=== PATIENT | male | born 1990 | race Caucasian/White ===

== ENCOUNTER 2025-10-07 08:45 | Outpatient (CLI) | payer MEDICAID, SELFPAY ==
--- OUTSIDE RECORDS SUMMARY | 2025-08-18 07:10 | XMS_ITS | Encounter Summary ---
Author Organization Healthcare Address [address] [place] [address] Care Team Providers Care Sink Cutter Name Role Phone Pcp, No Primary Care Provider Unavailabl e Encounter Details Date Type Department Care Team (Late st Contact Info) Description 08/18/2025 8:10 AM EDT Ancillary Procedure [facility] [address] [place] [address] Social History Tobacco Use Types Packs/Day Years Used Date Smoking Tobacco: Some Days Cigarettes Humiliation, Afraid, Rape, and Kick questionnair e Answer Date Recorded Within the last year, have y ou been afraid of your partner or ex-partner? No 02/25/2024 Within the last year, have y ou been humiliated or emotionally abused in other ways by your partner or ex-partner? No Within the last year, have y ou been kicked, hit, slapped, or otherwise physically hurt by your partner or ex-partner? No 02/25/2024 Within the last year, have y ou been raped or forced to have any kind of sexual activity by your partner or ex-partner? No 02/25/2024 Hunger Vital Sign Answer Date Recorded Within the past 12 months, y ou worried that your food would run out before you got the money to buy more. Never true 02/25/20 24 Within the past 12 months, t he food you bought just didn't last and you didn't have money to get more. Never true 02/25/2024 PRAPARE - Transportation Answer Date Re corded In the past 12 months, has l ack of transportation kept you from medical appointments or from getting medications? No 04/2024 In the past 12 months, has l ack of transportation kept you from meetings, work, or from getting things needed for daily living? No 02/25/2024 Housing Stability Vital Sign Answer Junior e Recorded In the last 12 months, was t here a time when you were not able to pay the mortgage or rent on time? No 02/25/2024 In the last 12 months, how many places have you lived? 1 02/25/2024 In the last 12 months, was t here a time when you did not have a steady place to sleep or slept in a halfway (including now)? No 02/25/2024 Utilities Answer Date Recorded In the past 12 months has th e electric, gas, oil, or water company threatened to shut off services in your home? No 02/25/2024 Sex and Gender Information Value Date Recorded Sex Assigned at Not on file Legal Sex Male 10:33 AM EDT Gender Identity Not on file Sexual Orientation Not on file documented as of this encounter Plan of Treatment Upcoming Encounters Date Type Department Care Team (Late st Contact Info) Description 10/26/2025 1:00 PM EST Procedure Visit [facility] [address] [place] [address] Lianet Murphy MD [address] [address] documented as of this encounter Procedures Procedure Name Priority Date/Time Associated Diagnosis Comments OCT, RETINA - OU - BOTH EYES Routine 08/18/2025 3:09 PM EDT Vitreous hemorrhage of both eyes ([facility]) documented in this encounter Results * OCT, Retina - OU - Both Eyes (08/18/2025 3:09 PM EDT) Anatomical Region Laterality Modality Head Optical Coherenc e Tomography Narrative 08/18/2025 3:09 PM EDT Right Eye Quality was good. Scan locations included subfoveal. Progression has improved. Left Eye Quality was good. Scan locations included subfoveal. Progression has been stable. Notes Right eye CME improved Left eye CME slightly improved, still present us Lianet Murphy MD OPHTH TOMOGRAPHY Final Result documented in this encounter Visit Diagnoses Not on filedocumented in this encounter Additional Health Concerns Assessment Noted Time A fall risk assessment has been complete d for the patient 07/21/2025 1:55 PM EDT A Body Mass Index follow-up plan has been documented for the patient 08/18/2025 3:37 PM EDT documented as of this encounter Care Teams Sink Cutter Relationship Specialty Start Date End Date Pcp, No [address] [place] [address] PCP - General Family Medicine 01/25/24 documented as of this encounter
--- OUTSIDE RECORDS SUMMARY | 2025-08-18 13:00 | XMS_ITS | Encounter Summary ---
Author Organization [facility] Address 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 Procedures AL BEVACIZUMAB INJECTION Lianet Murphy MD [address] [place] [phone] Phone: tel: fax: Referral ID Status Reason Start Date Expiration Date V isits Requested Visits Authorized [id number] Authorized 08/18/2025 02/17/2027 1 1 * Clinic-Administered Medication (Routine) - Authorized Specialty Diagnoses / Procedures Referred By Leonel gallo Referred To Contact Diagnoses 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 Procedures AL BEVACIZUMAB INJECTION Lianet Murphy MD [address] [address] Phone: tel: fax: Referral ID Status Reason Start Date Expiration Date V isits Requested Visits Authorized [id number] Authorized 08/18/2025 02/17/2027 1 1 Reason for Visit * Reason Comments Diabetic Eye Exam Encounter Details Date Type Department Care Team (Latest Contact Info) Description 08/18/2025 2:00 PM EDT Office Visit [facility] [address] [place] [address] Lianet Murphy MD [address] [place] [address] Vitreous hemorrhage of both eyes (CMS/HCC) (Primary Dx); 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 No 02/25/2024 Utilities Answer Date Recorded In the past 12 months has e electric, gas, oil, or water company threatened to shut off services in your home? No 02/25/2024 Sex and Gender Information Value Date Recorded Sex Assigned at Not on file Legal Sex Male 10:33 AM EDT Gender Identity Not on file Sexual Orientation Not on file documented as of this encounter Miscellaneous Notes * Progress Notes - Sukhwinder Weston MD - 08/18/2025 2:00 PM EDT RETINA CLINIC NOTE 08/18/25 CHIEF COMPLAINT Patient presents for Diabetic Eye Exam HISTORY OF PRESENT ILLNESS: Oziel Barney is a 35 y.o. male who presents to the clinic today for: HPI Oziel Barney is a 35 y.o. 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 Pt states that his vision is stable but he still has a floaters in the right eye (OD). He denies any pain or flashes.no eye drops are being used. A1c 8.8 Blood sugar 228 Last edited by Que Mead on 08/18/2025 2:13 PM. Referring physician: No referring provider defined for this encounter. HISTORICAL INFORMATION: Selected notes from the medical record: CURRENT MEDICATIONS: No current outpatient medications on file. (Ophthalmic Drugs) No current facility-administered medications for this visit. (Ophthalmic Drugs) Current Outpatient Medications (Other) Medication Sig Alcohol Sheets (Alcoh-Wipe) sheet Use as directed. Blood Glucose Monitoring Suppl device Test three times daily glucose blood test strip Test three times daily insulin glargine-yfgn 100 UNIT/ML injection vial Inject 0.22 mL (22 Units) under the skin 1 (one) time each day. insulin lispro 100 UNIT/ML injection pen Inject 8 Units under the skin 3 (three) times a day with meals. Lancets misc Test three times daily pen needle, diabetic 31G X 5 MM misc Use as directed with insulin pen. pen needle, diabetic 31G X 5 MM misc Use as directed with insulin pen. carvedilol (Coreg) 6.25 MG tablet Take 1 tablet (6.25 mg) by mouth 2 (two) times a day. (Patient not taking: Reported on 08/18/2025) losartan (Cozaar) 25 MG tablet Take 1 tablet (25 mg) by mouth 1 (one) time each day. (Patient not taking: Reported on 08/18/2025) No current facility-administered medications for this visit. (Other) PAST MEDICAL HISTORY Past Medical History[1] SOCIAL HISTORY Social History[2] GENERAL EXAM: General Exam: Neuro: Alert and Oriented x 3, normal mood and affect OPHTHALMIC EXAM: Base Eye Exam Visual Acuity (Snellen - Linear) Right Left Dist sc CF at 3' 20/60 Dist ph sc 20/40 -1 Tonometry (Tonopen, 2:19 PM) Right Left Pressure 18 19 Pupils Shape React APD Right Round fixed None Left Round fixed None Neuro/Psych Oriented x3: Yes Mood/Affect: Normal Dilation Both eyes: 1% Tropicamide, 2.5% Phenylephrine @ 2:20 PM Slit Lamp and Fundus Exam External Exam Right Left External Normal Normal Slit Lamp Exam Right Left Lids/Lashes Normal for age Normal for age Conjunctiva/Sclera Normal Normal Cornea Clear and compact Clear and compact Anterior Chamber Deep and quiet Deep and quiet Iris Normal pupil size and shape Normal pupil size and shape Lens 1+ Nuclear sclerosis 1+ Nuclear sclerosis Anterior Vitreous Vitreous hemorrhage Clear Fundus Exam Right Left Posterior Vitreous Hemorrhage Hemorrhage Disc Neovascularization Neovascularization C/D Ratio 0.3 0.3 Macula scattered DBH, CWS, exudate scattered DBH, CWS, exudate, (+) DME Vessels PDR PDR Periphery NVE in some areas NVE IMAGING AND PROCEDURES OCT, Retina - OU - Both Eyes Right Eye Quality was good. Scan locations included subfoveal. Progression has improved. Left Eye Quality was good. Scan locations included subfoveal. Progression has been stable. Notes Right eye CME improved Left eye CME slightly improved, still present Intravitreal Injection, Pharmacologic Agent - OU - Both Eyes Time Out 08/18/2025. 3:30 PM. Confirmed correct patient, procedure, site, and patient consented. Anesthesia Right Eye Topical anesthesia was used. Anesthetic medications included Proparacaine 0.5%. Left Eye Topical anesthesia was used. Anesthetic medications included Proparacaine 0.5%. Procedure Right Eye Preparation included 5% betadine to ocular surface. A 30 gauge needle was used. Injection: 1.25 mg bevacizumab 2.25 MG/0.09ML Route: Intravitreal, Site: Right Eye NDC: 21423-430-64, Lot: [id number], Expiration date: 10/23/2025 Left Eye Preparation included 5% betadine to ocular surface. A 30 gauge needle was used. Injection: 1.25 mg bevacizumab 2.25 MG/0.09ML Route: Intravitreal, Site: Left Eye NDC: 26216-028-34, Lot: [id number], Expiration date: 11/21/2025 Post-op Right Eye Post injection exam found visual acuity of at least counting fingers, no retinal detachment, perfused optic nerve. The patient tolerated the procedure well. There were no complications. The patient received written and verbal post procedure care education. Post injection medications were not given. Left Eye Post injection exam found visual acuity of at least counting fingers, no retinal detachment, perfused optic nerve. The patient tolerated the procedure well. There were no complications. The patient received written and verbal post procedure care education. Post injection medications were not given. VISIT DIAGNOSES 1. Vitreous hemorrhage of both eyes (CMS/[facility]) OCT, Retina - OU - Both Eyes 2. 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 - neovascularization elsewhere (NVE) with pre retinal Hg both eyes (OU) - vitreous (vit) heme both eyes (OU) - OCT both eyes (OU) shows significant DME. - Discussed the r/b/a of intravitreal injections and the need for panretinal photocoagulation (PRP)both eyes (OU). - improved at 4 weeks status post (s/p) KATHY OU - Plan: KATHY OU and RTC 4-6w - will need panretinal photocoagulation (PRP) both eyes (OU) in future Electronically Signed by: Sukhwinder Weston MD - 08/18/2025 - 2:54 PM Explained the diagnoses, plan, and follow up with the patient and they expressed understanding. Patient expressed understanding of the importance of proper follow up care. Follow up in about 4 weeks (around 09/15/2025). Tobacco cessation initiative Tobacco Use: High Risk (08/18/2025) Patient History Smoking Tobacco Use: Some Days Smokeless Tobacco Use: Unknown Passive Exposure: Not on file The patient has been counseled on tobacco cessation: Yes Electronically signed by: Lianet Murphy MD 08/18/2025 3:31 PM Lianet Murphy MD [employer] Supervisor [facility]reoRetinal Surgery [facility] [1] History reviewed. No pertinent past medical history. [2] Social History Tobacco Use Smoking status: Some Days Current packs/day: 0.25 Types: Cigarettes Vaping Use Vaping status: Never Used Cosigned by Lianet Murphy MD at 08/18/2025 3:33 PM EDT Associated attestation - Lianet Murphy MD - 08/18/2025 3:33 PM EDT I saw and evaluated the patient with the resident/fellow. I discussed the case with the resident/fellow and agree with the findings and plan as documented. 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 3:30 PM. Confirmed correct patient, procedure, site, and patient consented. Anesthesia Right Eye Topical anesthesia was used. Anesthetic medications included Proparacaine 0.5%. Left Eye Topical anesthesia was used. Anesthetic medications included Proparacaine 0.5%. Procedure Right Eye Preparation included 5% betadine to ocular surface. A 30 gauge needle was used. Injection: 1.25 mg bevacizumab 2.25 MG/0.09ML Route: Intravitreal, Site: Right Eye NDC: 49305-345-82, Lot: [id number], Expiration date: 10/23/2025 Left Eye Preparation included 5% betadine to ocular surface. A 30 gauge needle was used. Injection: 1.25 mg bevacizumab 2.25 MG/0.09ML Route: Intravitreal, Site: Left Eye NDC: 65557-522-48, Lot: [id number], Expiration date: 11/21/2025 Post-op Right Eye Post injection exam found visual acuity of at least counting fingers, no retinal detachment, perfused optic nerve. The patient tolerated the procedure well. There were no complications. The patient received written and verbal post procedure care education. Post injection medications were not given. Left Eye Post injection exam found visual acuity of at least counting fingers, no retinal detachment, perfused optic nerve. The patient tolerated the procedure well. There were no complications. The patient received written and verbal post procedure care education. Post injection medications were not given. Lianet Murphy MD OPHTH CLINIC PROCEDURES Final Result * OCT, Retina - OU - Both Eyes (08/18/2025 3:09 PM EDT) Anatomical Region Laterality Modality Head Optical Coherenc e Tomography Narrative 08/18/2025 3:09 PM EDT Right Eye Quality was good. Scan locations included subfoveal. Progression has improved. Left Eye Quality was good. Scan locations included subfoveal. Progression has been stable. 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 documented in this encounter Administered Medications Inactive Administered Medications - up to 3 most recent administrations Medication Order MAR Action Action Date Dose Rate Site bevacizumab injection 1.25 mg 1.25 mg, Intravitreal, Once PRN Procedure, 1 dose, Starting on Sat08/18/25 at 1531, Until Sat08/18/25 at 1531, RoutineIndications: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 Given 08/18/2025 3:31 PM EDT 1.25 mg Right Eye bevacizumab injection 1.25 mg 1.25 mg, Intravitreal, Once PRN Procedure, 1 dose, Starting on Sat08/18/25 at 1531, Until Sat08/18/25 at 1531, RoutineIndications: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
--- OUTSIDE RECORDS SUMMARY | 2025-09-22 08:00 | XMS_ITS | Encounter Summary ---
Author Organization [facility] Address [address] 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 Procedures MD BEVACIZUMAB INJECTION Lianet Murphy MD [address] [place] [phone] Phone: tel: fax: Referral ID Status Reason Start Date Expiration Date V isits Requested Visits Authorized [id number] Authorized 09/22/2025 03/24/2027 1 1 * Clinic-Administered Medication (Routine) - Authorized Specialty Diagnoses / Procedures Referred By Leonel gallo Referred To Contact Diagnoses 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 Procedures MD BEVACIZUMAB INJECTION Lianet Murphy MD [address] [address] Phone: tel: fax: Referral ID Status Reason Start Date Expiration Date V isits Requested Visits Authorized [id number] Authorized 09/22/2025 03/24/2027 1 1 Reason for Visit * Reason Comments Diabetic Eye Exam Encounter Details Date Type Department Care Team (Latest Contact Info) Description 09/22/2025 8:00 AM EST Procedure Visit [facility] [address] [place] [address] Lianet Murphy MD [address] [place] [address] Vitreous hemorrhage of both eyes [...] place to sleep or slept in a snf (including now)? No 02/25/2024 Utilities Answer Date [...] encounter Miscellaneous Notes * Progress Notes - Svetlana Nolan MD - 09/22/2025 8:00 AM EST RETINA CLINIC NOTE 09/22/25 CHIEF COMPLAINT Patient presents for Diabetic Eye Exam HISTORY OF PRESENT ILLNESS: Oziel Barney is a 35 y.o. male who presents to the clinic today for: HPI Oziel Barney is a 35 y.o. 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 Last KATHY both eyes (OU) 08/18/2025. Patient states that vision remains blurry in the right eye. He states that he can see better in thedistance with the right eye, but not as well near in the right eye. Left eye remains stable. Patient is not seeing any floaters currently. Denies flashes of light, pain, or irritation. Last A1C around 8 taken around September 2024. LBS 173 taken this AM. Last edited by Argentina Abdi on 09/22/2025 8:04 AM. Referring physician: No referring provider defined for [...] a day. (Patient not taking: Reported on 09/22/2025) losartan (Cozaar) 25 MG tablet Take 1 tablet (25 mg) by mouth 1 (one) time each day. (Patient not taking: Reported on 09/22/2025) No current facility-administered medications for this visit. (Other) PAST MEDICAL HISTORY Past Medical History[1] SOCIAL HISTORY Social History[2] GENERAL EXAM: General Exam: Neuro: Alert and Oriented x 3, normal mood and affect OPHTHALMIC EXAM: Base Eye Exam Visual Acuity (Snellen - Linear) Right Left Dist sc 20/400 20/50 +2 Dist ph sc 20/150 NI Tonometry (Tonopen, 8:11 AM) Right Left Pressure 15 16 Pupils Shape APD Right Round None Left Round None Left eye (OS)>right eye (OD) Neuro/Psych Oriented x3: Yes Mood/Affect: Normal Dilation Both eyes: 1% Tropicamide, 2.5% Phenylephrine @ 8:10 AM Slit Lamp and Fundus Exam External Exam [...] Scan locations included subfoveal. Progression has improved. Notes Right eye (OD): VH, DME slightly improved Left eye (OS) : DME slightly improved, still significant Intravitreal Injection, Pharmacologic Agent - OU - Both Eyes Time Out 09/22/2025. 9:04 AM. Confirmed correct patient, procedure, site, and patient consented. Anesthesia Right Eye Topical anesthesia was used. Anesthetic medications included Proparacaine 0.5%. Left Eye Topical anesthesia was used. Anesthetic medications included Proparacaine 0.5%. Procedure Right Eye Preparation included 5% betadine to ocular surface. A 30 gauge needle was used. Injection: 1.25 mg bevacizumab 2.25 MG/0.09ML Route: Intravitreal, Site: Right Eye NDC: 01111-386-25, Lot: [id number], Expiration date: 12/09/2025 Left Eye Preparation included 5% betadine to ocular surface. A 30 gauge needle was used. Injection: 1.25 mg bevacizumab 2.25 MG/0.09ML Route: Intravitreal, Site: Left Eye NDC: 83886-442-76, Lot: [id number], Expiration date: 12/09/2025 Post-op Right Eye Post injection exam found [...] DIAGNOSES 1. Vitreous hemorrhage of both eyes (CMS/HCC) OCT, Retina - OU - Both Eyes 2. 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 - neovascularization elsewhere (NVE) with pre retinal Hg both eyes (OU) - vitreous (vit) heme right eye (OD)>>left eye (OS) - OCT both eyes (OU) shows DME slightly improved, still significant left eye (OS)>right eye (OD) - Discussed the r/b/a of intravitreal injections and the need for panretinal photocoagulation (PRP)both eyes (OU). - status post (s/p) KATHY both eyes (OU) 5 weeks ago. - Plan: KATHY OU and RTC 4-6w - will need panretinal photocoagulation (PRP) both eyes (OU) once vitreous (vit) heme and DME improves. Explained the diagnoses, plan, and follow up with the patient and they expressed understanding. Patient expressed understanding of the importance of proper follow up care. Follow up in about 4 weeks (around 10/20/2025) for 4-6 weeks, Dilated Exam, OCT. Tobacco cessation initiative Tobacco Use: High Risk (09/22/2025) Patient History Smoking Tobacco Use: Some Days Smokeless Tobacco Use: Unknown Passive Exposure: Not on file The patient has been counseled on tobacco cessation: Yes Electronically signed by: Lianet Murphy MD 09/22/2025 9:04 AM Lianet Murphy MD Crib Attendant VitreoRetinal Surgery [facility] Electronically Signed by: Svetlana Nolan MD - 09/22/2025 - 8:33 AM [1] History reviewed. No pertinent past medical history. [2] Social History Tobacco Use Smoking status: Some Days Current packs/day: 0.25 Types: Cigarettes Vaping Use Vaping status: Never Used Cosigned by Lianet Murphy MD at 09/22/2025 9:05 AM EST Associated attestation - Lianet Murphy MD - 09/22/2025 9:05 AM EST I saw and evaluated the patient with the resident/fellow. I discussed the case with the resident/fellow and agree with the findings and plan as documented. 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) documented in this encounter Results * Intravitreal Injection, Pharmacologic Agent - OU - Both Eyes (09/22/2025 9:04 AM EST) Anatomical Region Laterality Modality Head Other Narrative 09/22/2025 9:04 AM EST Time Out 09/22/2025. 9:04 AM. Confirmed correct patient, procedure, site, and patient consented. Anesthesia Right Eye Topical anesthesia was used. Anesthetic medications included Proparacaine 0.5%. Left Eye Topical anesthesia was used. Anesthetic medications included Proparacaine 0.5%. Procedure Right Eye Preparation included 5% betadine to ocular surface. A 30 gauge needle was used. Injection: 1.25 mg bevacizumab 2.25 MG/0.09ML Route: Intravitreal, Site: Right Eye NDC: 74233-441-51, Lot: [id number], Expiration date: 12/09/2025 Left Eye Preparation included 5% betadine to ocular surface. A 30 gauge needle was used. Injection: 1.25 mg bevacizumab 2.25 MG/0.09ML Route: Intravitreal, Site: Left Eye NDC: 57760-031-87, Lot: [id number], Expiration date: 12/09/2025 Post-op Right Eye Post injection exam found [...] OCT, Retina - OU - Both Eyes (09/22/2025 8:40 AM EST) Anatomical Region Laterality Modality Head Optical Coherenc e Tomography Narrative 09/22/2025 8:40 AM EST Right Eye Quality was good. Scan locations included subfoveal. Progression has improved. Left Eye Quality was good. Scan locations included subfoveal. Progression has improved. Notes Right eye (OD): VH, DME slightly improved Left eye (OS) : DME slightly improved, still significant Lianet Murphy MD OPHTH TOMOGRAPHY Final Result documented in this encounter Visit Diagnoses Diagnosis Vitreous hemorrhage of both eyes (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 Given 09/22/2025 9:04 AM EST 1.25 mg Right Eye bevacizumab injection 1.25 mg 1.25 mg, Intravitreal, Once PRN Procedure, 1 dose, Starting on Sat09/22/25 at 0904, Until Sat09/22/25 at 0904, RoutineIndications: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
--- OUTSIDE RECORDS SUMMARY | 2025-09-22 08:10 | XMS_ITS | Encounter Summary ---
Author Organization [facility] Address [address] [place] [address] Care Team Providers Care Naphtha Washing System Operator Name Role Phone Pcp, No Primary Care Provider Unavailabl e Encounter Details Date Type Department Care Team (Late st Contact Info) Description 09/22/2025 8:10 AM EST Ancillary Procedure [facility] [address] [facility] [place] [address] Social History Tobacco Use Types [...] place to sleep or slept in a longterm (including now)? No 02/25/2024 Utilities Answer Date [...] Description 10/26/2025 1:00 PM EST Procedure Visit [facility] [address] [place] [address] Lianet Murphy MD [address] [address] documented as of this encounter Procedures Procedure Name Priority Date/Time Associated Diagnosis Comments OCT, RETINA - OU - BOTH EYES Routine 09/22/2025 8:40 AM EST Vitreous hemorrhage of both eyes (CMS/HCC) documented in this encounter Results * OCT, [...] (OS) : DME slightly improved, still significant us Lianet Murphy MD OPHTH TOMOGRAPHY Final [...] documented as of this encounter Care Teams Naphtha Washing System Operator Relationship Specialty Start Date End Date Pcp, No [address] [place] [address] PCP - General Family Medicine 01/25/24 documented as of this encounter
[2025-10-07 18:00] LABS: Hematocrit 46.7 % (42.0-52.0); Hemoglobin 15.8 g/dL (14.1-18.0); Immature Granulocytes % 0.2 %; Mean Corpuscular HGB Conc 33.8 g/dL (31.8-35.4); Mean Corpuscular Hemoglobin 30.9 pg (27.0-31.2); Mean Corpuscular Volume 91.4 fl (80-94); Nucleated Red Blood Cells % 0 %; Platelet Count 424 K/mm3 (142-424); Red Blood Count 5.11 M/mm3 (4.60-6.20); Red Cell Distribution Width-SD 40.0 fL; White Blood Count 12.8 K/mm3 (4.8-10.8)
[2025-10-07 18:08] LABS: Alanine Aminotransferase 37 U/L (12-78); Albumin Level 3.7 g/dl (3.5-5.0); Albumin/Globulin Ratio 1.3 (1.1-1.8); Alkaline Phosphatase 151 U/L (38-126); Anion Gap 14.2 mEq/L (5-15); Aspartate Amino Transferase 51 U/L (17-59); Bilirubin,Total 0.6 mg/dl (0.2-1.3); Blood Urea Nitrogen 24 mg/dl (9-20); Calcium 9.8 mg/dl (8.4-10.2); Carbon Dioxide 25 mmol/L (22.0-30.0); Chloride 99 mmol/L (98-107); Creatinine,Serum 1.20 mg/dl (0.66-1.25); Estimated Glomerular Filt Rate 70 ml/min (>60); GFR (African American) 84 ML/MIN (>60); Globulin 2.8 g/dL (1.3-3.2); Glucose 388 mg/dl (74-100); HDL Cholesterol 60 mg/dl (40-60); Potassium 5.2 mmoL/L (3.5-5.1); Sodium 133 mmol/L (136-145); Total Protein,Serum 6.5 g/dl (6.3-8.2); Triglycerides 302 mg/dl (30-150)
[2025-10-07 18:25] LABS: Cholesterol 399 mg/dl (140-200)
[2025-10-07 18:39] LABS: Thyroid Stimulating Hormone 14.80 uIU/mL (0.465-4.68)
[2025-10-07 20:52] LABS: Hepatitis C Ab Qual. W/ RFX NEGATIVE (Negative)
--- OUTSIDE RECORDS SUMMARY | 2025-10-08 09:27 | XMS_ITS | Encounter Summary ---
Author Organization [facility] Address [address] [place] [address] Care Team Providers Care Environmental Studies Faculty Member Name Role Phone Pcp, No Primary Care Provider Unavailabl e Encounter Details Date Type Department Care Team (Latest Contact Info) Description 08/18/2025 Travel Social History Tobacco Use Types Packs/Day Years [...] place to sleep or slept in a penitentiary (including now)? No 02/25/2024 Utilities Answer Date [...] Description 10/26/2025 1:00 PM EST Procedure Visit [facility] [address] [place] [address] Lianet Murphy MD [address] [address] documented as of this encounter Visit Diagnoses Not on filedocumented in this encounter Additional Health Concerns Assessment Noted Time A fall risk assessment has been complete d for the patient 07/21/2025 1:55 PM EDT A Body Mass Index follow-up plan has been documented for the patient 08/18/2025 3:37 PM EDT documented as of this encounter Care Teams Environmental Studies Faculty Member Relationship Specialty Start Date End Date Pcp, No [address] [place] [address] PCP - General Family Medicine 01/25/24 documented as of this encounter
--- OUTSIDE RECORDS SUMMARY | 2025-10-08 09:27 | XMS_ITS | Clinical Summary ---
Author Organization Healthcare Address [address] [place] [address] Care Team Providers Care Physics And Astronomy Professor Name Role Phone Pcp, No Primary Care Provider Unavailabl e Allergies Active Allergy Reactions Criticality Noted Date Comments Promethazine Other - please docum ent in the comment field Low 02/23/2024 IV - caused seizure Medications insulin glargine-yfgn 100 UNIT/ML injection vial Inject 0.22 mL (22 Units) under the skin 1 (one) time each day. 10 mL 3 4 Active Blood Glucose Monitoring Suppl device Test three times daily 1 each 4 Active glucose blood test strip Test three times daily 300 strip 11 4 Active Lancets misc Test three times daily 300 each 11 4 Active Alcohol Sheets (Alcoh-Wipe) sheet Use as directed. 300 each 11 4 Active pen needle, diabetic 31G X 5 MM misc Use as directed with insulin pen. 100 each 11 4 Active pen needle, diabetic 31G X 5 MM misc Use as directed with insulin pen. 100 each 11 4 Active insulin lispro 100 UNIT/ML injection pen Inject 8 Units under the skin 3 (three) times a day with meals. 15 mL 3 4 Active losartan (Cozaar) 25 MG tablet Take 1 tablet (25 mg) by mouth 1 (one) time each day. 30 tablet 2 4 Active Additional Information Patient not taking.Reported on 09/22/2025 carvedilol (Coreg) 6.25 MG tablet Take 1 tablet (6.25 mg) by mouth 2 (two) times a day. 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 Concern for possible PDR as discussed above due to extent of hemorrhage and NVD. Has been present for a few weeks, will refer to retina within the week for further evaluation. No holes, tears, detachments noted today, but would recommend depressed exam if possible with retina. Monitor as recommended. 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 Emphasized importance of good blood glucose control and follow-up with primary care physician. Discussed that diabetic retinopathy may lead to vision loss and/or permanent blindness if left untreated. Refer to retina within 1 week for evaluation and management of condition. Orders: OCT, Retina - OU - Both Eyes OCT, Optic Nerve - OU - Both Eyes Type 1 diabetes mellitus wit hout complications 11/11/2024 07/21/2025 Acute encephalopathy 02/25/2024 024 Diabetic ketoacidosis withou t coma associated with diabetes mellitus due to underlying condition 02/23/2024 02/27/2024 Encounters Date Type Department Care Team Description 09/22/2025 8:10 AM EST Ancillary Procedure [facility] [address] [place] [address] 09/22/2025 8:00 AM EST Procedure Visit [facility] [address] [place] [address] Lianet Murphy MD Vitreous hemorrhage of both eyes (CMS/HCC) (Primary Dx); 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 09/22/2025 Travel 08/18/2025 2:00 PM EDT Office Visit [facility] [address] [place] [address] Lianet Murphy MD Vitreous hemorrhage of both eyes ([facility]) (Primary Dx); 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 08/18/2025 8:10 AM EDT Ancillary Procedure [facility] [address] [place] [address] 08/18/2025 Travel 07/21/2025 1:30 PM EDT Office Visit [facility] [address] [address] Lianet Murphy MD 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 (Primary Dx); Vitreous hemorrhage of both eyes ([facility]) 07/21/2025 12:55 PM EDT Ancillary Procedure [facility] [address] [place] [address] 07/21/2025 Travel 07/14/2025 9:15 AM EDT Ancillary Procedure [facility] [address] [place] [address] 07/14/2025 9:10 AM EDT Ancillary Procedure [facility] [address] [place] [address] 07/14/2025 8:30 AM EDT Office Visit [facility] [address] [place] [address] Haley Carpio S, OD 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 No 02/25/2024 Utilities Answer Date Recorded In the past 12 months has th e electric, gas, oil, or water company threatened to shut off services in your home? No 02/25/2024 Sex and Gender Information Value Date Recorded Sex Assigned at Not on file Legal Sex Male 10:33 AM EDT Gender Identity Not on file Sexual Orientation Not on file Last Filed Vital Signs Vital Sign Reading Time Taken Comments Blood Pressure 143/88 02/27/2024 3:17 PM EDT Pulse 102 02/27/2024 3:17 PM EDT Temperature 36.6 C (97.9 F) 02/27/2024 3:17 PM EDT Respiratory Rate 18 02/27/2024 3:17 PM EDT Oxygen Saturation 98% 02/27/2024 3:17 PM EDT Inhaled Oxygen Concentration - - Weight 78.2 kg (172 lb 6.4 oz) 02/27/2024 6:00 A M EDT Height 170.1 cm (5' 6.97 ) 02/24/2024 8:30 PM ED T Body Mass Index 27.03 02/24/2024 8:30 PM EDT Plan of Treatment Upcoming Encounters Date Type Department Care Team (Late st Contact Info) Description 10/26/2025 1:00 PM EST Procedure Visit [facility] [address] [place] [address] Lianet Murphy MD [address] [address] Health Maintenance Due Date Last Done Comments [facility]-Depression Screening 1992 [facility]-/Child/Adol SDOH Screenings 1992 Diabetes: Dental Exam 2002 [facility]-Varicella Vaccines (1 of 2 - 13+ 2-dose series) 2005 [facility]- SDOH Screenings 2010 [facility]-Adult SDOH Screenings 2010 [facility]-DTaP,Tdap,and Td Vaccines (1 - Tdap) 2011 [facility]-Hepatitis B Vaccines (1 of 3 - 19+ 3-dose series) 2011 [facility]-Pneumococcal Vaccine: Pediatrics (0 to 5 Years) and At-Risk Patients (6 to 49 Years) (1 of 2 - PCV) 2011 [facility]-Diabetes: Hemoglobin A1C 05/24/2024 02/23/2024 [id number] Vaccine (1 - 2024- season) 2025 [facility]-Influenza Vaccine (#1) 2025 [facility]-Zoster Vaccines (1 of 2) 2042 [facility]-HIV Screening Completed 02/23/2024 [facility]-Hepatitis C Screening Completed 02/23/2024 [facility]-Obesity Intervention Completed 025, 08/18/2025, 07/21/2025, Additional history exists HPV Vaccines (No Doses Required) Completed [facility]-HIB Vaccines Aged Out No longer e ligible based on patient's age to complete this topic [facility]-Hepatitis A Vaccines Aged Out No longer eligible based on patient's age to complete this topic [facility]-IPV Vaccines Aged Out No longer e ligible based on patient's age to complete this topic [facility]-Rotavirus Vaccines Aged Out No lo nger eligible based on patient's age to complete this topic Procedures Procedure Name Priority Date/Time Associated Diagnosis Comments INTRAVITREAL INJECTION, PHARMACOLOGIC AGENT - OU - BOTH EYES Routine 09/22/2025 9:04 AM EST 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 OCT, RETINA - OU - BOTH EYES Routine 09/22/2025 8:40 AM EST Vitreous hemorrhage of both eyes (CMS/HCC) INTRAVITREAL INJECTION, PHARMACOLOGIC AGENT - OU - BOTH EYES Routine 08/18/2025 3:31 PM EDT 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 OCT, RETINA - OU - BOTH EYES Routine 08/18/2025 3:09 PM EDT Vitreous hemorrhage of both eyes (CMS/HCC) INTRAVITREAL INJECTION, PHARMACOLOGIC AGENT - OU - BOTH EYES Routine 07/21/2025 3:28 PM EDT 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 OCT, RETINA - OU - BOTH EYES Routine 07/21/2025 2:51 PM EDT 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 OCT, OPTIC NERVE - OU - BOTH EYES Routine 07/14/2025 9:29 AM EDT 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, without long-term current use of insulin (CMS/HCC) OCT, RETINA - OU - BOTH EYES Routine 07/14/2025 9:09 AM EDT 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 A 30 gauge needle was used. Injection: 1.25 mg bevacizumab 2.25 MG/0.09ML Route: Intravitreal, Site: Left Eye NDC: 19721-552-82, Lot: [id number], Expiration date: 12/09/2025 Post-op Right Eye Post [...] education. Post injection medications were not given. us Lianet Murphy MD OPHTH CLINIC PROCEDURES Final [...] improved, still significant us Lianet Murphy MD OPH TOMOGRAPHY Final Result * Intravitreal Injection, Pharmacologic Agent - OU [...] 2.25 MG/0.09ML Route: Intravitreal, Site: Right Eye [facility]: 75927-929-91, Lot: [id number], Expiration date: 10/23/2025 Left Eye Preparation included 5% betadine to ocular surface. A 30 gauge needle was used. Injection: 1.25 mg bevacizumab 2.25 MG/0.09ML Route: Intravitreal, Site: Left Eye [facility]: 01725-303-88, Lot: [id number], Expiration date: 11/21/2025 Post-op Right Eye Post [...] education. Post injection medications were not given. us Lianet Murphy MD OPHTH CLINIC PROCEDURES Final [...] Lianet Murphy MD OPHTH TOMOGRAPHY Final Result * Intravitreal Injection, Pharmacologic Agent - OU - Both Eyes (07/21/2025 3:28 PM EDT) Anatomical Region Laterality Modality Head Other Narrative 07/21/2025 3:28 PM EDT Time Out 07/21/2025. 3:28 PM. Confirmed correct patient, procedure, site, and patient consented. Anesthesia Right Eye Topical anesthesia was used. Anesthetic medications included Proparacaine 0.5%. Left Eye Topical anesthesia was used. Anesthetic medications included Proparacaine 0.5%. Procedure Right Eye Preparation included 5% betadine to ocular surface. A 30 gauge needle was used. Injection: 1.25 mg bevacizumab 2.25 MG/0.09ML Route: Intravitreal, Site: Right Eye NDC: 52475-245-05, Lot: [id number], Expiration date: 10/23/2025 Left Eye Preparation included 5% betadine to ocular surface. A 30 gauge needle was used. Injection: 1.25 mg bevacizumab 2.25 MG/0.09ML Route: Intravitreal, Site: Left Eye NDC: 00248-835-00, Lot: [id number], Expiration date: 10/23/2025 Post-op Right Eye Post injection exam found [...] education. Post injection medications were not given. us Lianet Murphy MD OPHTH CLINIC PROCEDURES Final Result * OCT, Retina - OU - Both Eyes (07/21/2025 2:51 PM EDT) Anatomical Region Laterality Modality Head Optical Coherenc e Tomography Narrative 07/21/2025 2:51 PM EDT Right Eye Quality was good. Scan locations included subfoveal. Progression has no prior data. Findings include intraretinal fluid. Left Eye Quality was good. Scan locations included subfoveal. Progression has no prior data. Findings include abnormal foveal contour, intraretinal fluid. Notes Right eye (OD): Retinal thickening with CSME Left eye (OS): CSME with exudates us Lianet Murphy MD OPHTH TOMOGRAPHY Final Result * OCT, Optic Nerve - OU - Both Eyes (07/14/2025 9:29 AM EDT) Anatomical Region Laterality Modality Head Optical Coherenc e Tomography Narrative 07/14/2025 9:29 AM EDT Right Eye Images reviewed. To assess optic nerve function and for use in future follow-up. Reliability: poor. Left Eye Images reviewed. To assess optic nerve function and for use in future follow-up. Reliability: good and adequate. Notes ELVIN OD due to blood confounding results, no thinning OS Haley Carpio OD OPHTH TOMOGRAPHY Final Result * OCT, Retina - OU - Both Eyes (07/14/2025 9:09 AM EDT) Anatomical Region Laterality Modality Head Optical Coherenc e Tomography Narrative 07/21/2025 10:44 AM EDT Right Eye Quality was good. Scan locations included subfoveal. Progression has no prior data. Findings include normal foveal contour, intraretinal fluid. Left Eye Quality was good. Scan locations included subfoveal. Progression has no prior data. Findings include abnormal foveal contour, intraretinal fluid. Notes Large vit heme OD with intraretinal fluid; significant DME OS>OD altering foveal contour Haley Carpio OD OPHTH TOMOGRAPHY Final Result * ED HIV 1/2 Antibody/Antigen Screen w/Reflex to HIV 1/2 Differentiation (02/23/2024 1:32 PM EDT) [facility] HIV 1 & 2 Antibody/Antigen Screen Non Reactive Non Reactive 02/23/2024 2:55 PM EDT [facility] Comment:Screening for HIV 1 & 2 antibodies, and P24 antigen is NONREACTIVE. No confirmatory testing is required. Blood Venous blood specimen / Unknown Venipuncture / Unknown 02/23/2024 1:32 PM EDT 02/23/2024 1:53 PM EDT Kelvin Sanders MD LAB BLOOD ORDERABLES Kandi l Result Performing Organization Address City/[facility]/ZIP Co de Phone Number [facility] [address] [place] [address] * Hepatitis C Antibody - ED (02/23/2024 1:32 PM EDT) [facility] Hepatitis C Antibody Negative Negative 02/23/2024 2:55 PM EDT [facility] Blood Venous blood specimen / Unknown Venipuncture / Unknown 02/23/2024 1:32 PM EDT 02/23/2024 1:53 PM EDT Kelvin Sanders MD LAB BLOOD ORDERABLES Kandi l Result Performing Organization Address City/[facility]/ZIP Co de Phone Number [facility] [address] [place] [address] * (ABNORMAL) Hemoglobin A1c (02/23/2024 1:32 PM EDT) [facility] Hemoglobin A1c 12.9(H) <5.7 % 02/26/2024 8:06 AM EDT [facility] Comment: Blood Venous blood specimen / Unknown Venipuncture / Unknown 02/23/2024 1:32 PM EDT 02/23/2024 1:41 PM EDT Narrative [facility] - 02/26/2024 8:06 AM EDT HA1C Interpretive Data: Diagnosis of Diabetes: Diabetic > or = 6.5% Pre-diabetic 5.7 to 6.4% Non-diabetic < or = 5.6% Glycemic Targets for Type I and Type II Diabetics: Non- Adults <7.0% Adults <6.0% Children and Adolescents <7.5% Source: [place] [employer]. Standards of medical care in diabetes,2017. Diabetes Care.2017:40 (suppl 1):S1-S135. HbA1c assay performed by an ion-exchange chromatography method that is certified traceable to the DCCT. us Derrell Jimenez MD LAB BLOOD ORDERABLES Final Resul t [facility] [address] [place] [address] from Last 3 Months or Most Recently Relevant to Health Maintenance Insurance [employer] MEDICAID Advance Directives * Full Code (Latest Code Status on File) Date Activated Date Inactivated Comments 02/23/2024 3:29 PM 02/27/2024 7:06 PM Question Answer Comments Patient has decision-making capacity? No Healthcare Surrogate: Parent(s) of the patient Care Teams Physics And Astronomy Professor Relationship Specialty Start Date End Date Pcp, Christa [address] [place] [phone] PCP - General Family Medicine 01/25/24
--- OUTSIDE RECORDS SUMMARY | 2025-10-08 09:27 | XMS_ITS | Encounter Summary ---
Author Organization Healthcare Address [address] [place] [address] Care Team Providers Care Milk Powder Grinder Name Role Phone Pcp, No Primary Care Provider Unavailabl e Encounter Details Date Type Department Care Team (Latest Contact Info) Description 09/22/2025 Travel Social History Tobacco Use Types Packs/Day [...] place to sleep or slept in a [place] care facility (including now)? No 02/25/2024 Utilities Answer Date [...] Description 10/26/2025 1:00 PM EST Procedure Visit [facility] [address] [place] [address] Lianet Murphy MD [address] [address] documented as of this encounter Visit Diagnoses Not on filedocumented in this encounter Additional Health Concerns Assessment Noted Time A fall risk assessment has been complete d for the patient 09/22/2025 8:05 AM EST A Body Mass Index follow-up plan has been documented for the patient 09/22/2025 9:05 AM EST documented as of this encounter Care Teams Milk Powder Grinder Relationship Specialty Start Date End Date Pcp, [place] [address] PCP - General Family Medicine 01/25/24 documented as of this encounter
--- OUTSIDE RECORDS SUMMARY | 2025-10-08 09:27 | XMS_ITS | Patient Health Record ---
Author Organization [facility] Billing Depart ment Address [address] [place] [address] Care Team Providers Care Farmer General Name Role Phone Lewis Mott Unavailable [phone] Reason For Referral No Information Social History Social History Additional Details Category Social Info Options Details Migrated Social History Migrated Social History :: Right Hand Dominant Substance Use :: does not drink:: Quantity :: 0 :: AgeStart :: 0 :: AgeStop :: 0 Substance Use :: Nonsmoker Plan Of Treatment No Information
[2025-10-09 04:08] LABS: Hepatitis B Surface Antigen Negative (Negative)
== END 2025-10-07 23:59 | disposition home or self-care (01) ==
LOC: LAB.DROPOF 10-08 09:25
PROVIDERS: PCP Family Medicine; Visit Provider Nurse Practitioner Family
DX: E10.9 Type 1 diabetes mellitus without complications (principal); I10 Essential (primary) hypertension; Z11.59 Encounter for screening for other viral diseases; Z11.4 Encounter for screening for human immunodeficiency virus [HIV]
CPT/HCPCS: 80053; 80061; 84443; 85025; 86803; 87340; 87389